=== PATIENT | male | born 1980 | race Caucasian/White ===

== ENCOUNTER 2023-03-28 22:46 | Observation (INO) | payer BC ==
[2023-03-29] MEDS ORDERED: Ondansetron 4 MG/2 ML SDV IVPUSH ONE (00:22)
[2023-03-29] MEDS ORDERED: HYDROmorphone 1 MG/ML Syringe IVPUSH ONE (00:22)
[2023-03-29] MEDS ORDERED: Sodium Chloride 0.9% 10 ML Syringe FLUSH PRN (00:22)
[2023-03-29] MEDS ORDERED: Sodium Chloride 0.9% 1,000 ML IV SCH (00:30)
[2023-03-29 00:35] LABS: BASOPHILS ABSOLUTE AUTO 0.13 K/uL (0.00-0.10); BASOPHILS PERCENT AUTO 0.8 % (0.1-1.3); EOSINOPHILS ABSOLUTE AUTO 0.54 K/uL (0.00-0.40); EOSINOPHILS PERCENT AUTO 3.2 % (0.0-5.4); HEMATOCRIT 45.5 % (38.4-49.7); HEMOGLOBIN 16.2 g/dL (12.9-16.9); IMMATURE GRAN ABSOLUTE AUTO 0.09 K/uL (0.00-0.23); IMMATURE GRAN PERCENT AUTO 0.5 % (0.0-0.7); LYMPHOCYTES ABSOLUTE AUTO 0.93 K/uL (0.8-3.3); LYMPHOCYTES PERCENT AUTO 5.5 % (11.4-47.7); MEAN CORPUSCULAR HGB CONC 35.6 g/dL (31.6-35.5); MONOCYTES ABSOLUTE AUTO 1.13 K/uL (0.20-0.90); MONOCYTES PERCENT AUTO 6.7 % (3.3-12.6); NEUTROPHILS ABSOLUTE AUTO 14.17 K/uL (1.0-7.6); NEUTROPHILS PERCENT AUTO 83.3 % (40.0-78.1); PLATELET COUNT,PLT 318 K/uL (130-375); RED BLOOD CELL COUNT 5.23 M/uL (4.14-5.76)
[2023-03-29 01:01] LABS: A/G RATIO 1.1 (1.2-2.2); ALANINE AMINOTRANSFERASE,ALT 53 U/L (12-78); ALKALINE PHOSPHATASE 115 U/L (46-116); ASPARTATE AMNIOTRANSFERASE,AST 27 U/L (15-37); BILIRUBIN TOTAL 0.9 mg/dL (0.2-1.0); BLOOD UREA NITROGEN,BUN 14 mg/dL (7-18); CALCIUM 8.5 mg/dL (8.5-10.1); CARBON DIOXIDE,CO2 30 mmol/L (21-32); CHLORIDE,CL 100 mmol/L (100-108); EST CRCL DRUG DOSING (CG) 68.06 mL/min; ESTIMATED GFR 96 mL/min (>60); GLUCOSE RANDOM 143 mg/dL (74-106); LIPASE 54 U/L (73-393); POTASSIUM,K 3.4 mmol/L (3.6-5.2); PROTEIN TOTAL,TP 7.8 g/dL (6.4-8.2); SODIUM,NA 139 mmol/L (140-148)
[2023-03-29 01:02] LABS: ANION GAP 12.4 mmol/L (5.0-14.0)
[2023-03-29] MEDS ORDERED: Sodium Chloride 0.9% 50 ML IV STA (01:33)
[2023-03-29] MEDS ORDERED: Iopamidol 612 MG/ML 100 ML Bottle IV STA (01:33)
[2023-03-29] MEDS ORDERED: Sodium Chloride 0.9% 10 ML Syringe FLUSH STA (01:34)
[2023-03-29] MEDS ORDERED: Ketorolac 30 MG/ML SDV IVPUSH ONE (02:20)
[2023-03-29] MEDS ORDERED: Ketorolac 30 MG/ML SDV ONE ×2 (02:29→10:39)
[2023-03-29] MEDS ORDERED: Piperacillin/Tazobactam 3.375 GM in Sodium Chloride 0.9% 50 ML IV SCH (03:05)
[2023-03-29] MEDS ORDERED: Sodium Chloride 0.9% 100 ML ONE ×2 (03:15→03:18)
[2023-03-29] MEDS ORDERED: HYDROmorphone 1 MG/ML Syringe IVPUSH PRN (06:47)
[2023-03-29] MEDS ORDERED: Rocuronium 50 MG/5 ML Vial ONE (07:54)
[2023-03-29] MEDS ORDERED: Neostigmine Methylsulfate 1 MG/ML 5 ML Syringe ONE (07:54)
[2023-03-29] MEDS ORDERED: Ondansetron 4 MG/2 ML SDV ONE (07:54)
[2023-03-29] MEDS ORDERED: Succinylcholine 200 MG/10 ML MDV ONE (07:54)
[2023-03-29] MEDS ORDERED: Glycopyrrolate 0.2 MG/ML 5 ML MDV ONE (07:54)
[2023-03-29] MEDS ORDERED: Propofol 200 MG/20 ML SDV ONE (07:54)
[2023-03-29] MEDS ORDERED: Dexamethasone 4 MG/ML SDV ONE (07:54)
[2023-03-29] MEDS ORDERED: fentaNYL 250 MCG/5 ML SDV ONE (07:56)
[2023-03-29] MEDS ORDERED: Potassium Chloride 10 MEQ in Premix Bag 1 BAG IV ONE (08:04)
[2023-03-29] MEDS ORDERED: Bupivacaine 0.5%/EPINEPHrine 1:200,000 50 ML MDV ONE (08:11)
[2023-03-29] MEDS ORDERED: Piperacillin/Tazobactam/Dext 3.375 GM in Premix Bag 1 BAG IV SCH (10:00)
[2023-03-29] MEDS ORDERED: fentaNYL 100 MCG/2 ML SDV ONE (10:26)
[2023-03-29] MEDS ORDERED: Lactated Ringers 1,000 ML ONE (10:32)
[2023-03-29] MEDS ORDERED: Ondansetron 4 MG/2 ML SDV IVPUSH PRN (11:13)
[2023-03-29] MEDS: Lactated Ringers 1,000 ML IV SCH ×2 (12:08→14:42)
[2023-03-29] MEDS: Acetaminophen/HYDROcodone 325-5 MG Tab PO PRN ×2 (13:27→21:42)
[2023-03-30] MEDS: Acetaminophen/HYDROcodone 325-5 MG Tab PO PRN (03:46)
[2023-03-30 05:10] LABS: HEMATOCRIT 41.5 % (38.4-49.7); HEMOGLOBIN 14.5 g/dL (12.9-16.9); MEAN CORPUSCULAR HGB CONC 34.9 g/dL (31.6-35.5); MEAN CORPUSCULAR VOLUME 88.7 fL (81.4-99.0); RED BLOOD CELL COUNT 4.68 M/uL (4.14-5.76); WHITE BLOOD CELL COUNT,WBC 12.1 K/uL (3.2-11.0)
[2023-03-30 05:30] LABS: CALCIUM 8.3 mg/dL (8.5-10.1); CREATININE 0.9 mg/dL (0.8-1.3); EST CRCL DRUG DOSING (CG) 75.62 mL/min; POTASSIUM,K 3.7 mmol/L (3.6-5.2)
[2023-03-30 05:38] LABS: ANION GAP 12.7 mmol/L (5.0-14.0)
== END 2023-03-30 09:32 | disposition home or self-care (01) ==
LOC: JP.ED 22:46 → JP.SDS 03-29 10:27 → JP.MS 03-29 11:13
PROVIDERS: ADMIT Student in an Organized Health Care Education/Training Program; ATTEND Student in an Organized Health Care Education/Training Program
DX: K35.80 Unspecified acute appendicitis (principal); K82.8 Other specified diseases of gallbladder; F41.9 Anxiety disorder, unspecified; Z20.822 Contact with and (suspected) exposure to COVID-19; Z79.899 Other long term (current) drug therapy; Z90.49 Acquired absence of other specified parts of digestive tract
CPT/HCPCS: 36415; 44970; 74177; 80048; 80053; 83605; 83690; 85025; 85027; 87635; 88304; 96361; 96365; 96367; 96375; 99285; A9270; J0330; J1100; J1170; J1885; J2405; J2543; J2704; J2710; J3010; J3480; J3490; J7030; J7120; Q9967; U0002